=== PATIENT | male | born 1945 | race Caucasian/White ===

== ENCOUNTER 2020-01-25 12:22 | Outpatient (CLI) | payer MEDICARE, SELFPAY ==
--- NOTE | ~2020-01-25 | XR_ITS ---
XR lumbar spine 2-3V DATE: 01/25/2020 12:46 INDICATION: Low back pain. No injury. TECHNIQUE: AP, lateral, coned lateral lumbosacral views COMPARISON: None FINDINGS: Diffuse osteopenia. Mild levoscoliosis of the lumbar spine. Normal alignment of the lumbar spine. There is minimal anterolisthesis at L2-3. Mild degenerative disc disease at L2-3. There is moderately severe degenerative disease at L3-4 and L 4-5 and L5-S1. No fracture or bone destruction. The lumbar pedicles are intact. The sacral iliac joints appear mine l. There is extensive calcification of the abdominal aorta and iliac arteries. IMPRESSION: Mild levoscoliosis Diffuse osteopenia Multilevel degenerative disc disease Reviewed, dictated and finalized at location A.
== END 2020-01-25 12:23 | disposition home or self-care (01) ==
PROVIDERS: PCP Family Medicine; Visit Provider Family Medicine
DX: M54.16 Radiculopathy, lumbar region (principal); M54.5 Low back pain; M41.86 Other forms of scoliosis, lumbar region; M85.88 Other specified disorders of bone density and structure, other site; M51.36 Other intervertebral disc degeneration, lumbar region
CPT/HCPCS: 72100

== ENCOUNTER 2020-03-19 14:26 | Outpatient (CLI) | payer MEDICARE, SELFPAY ==
--- NOTE | ~2020-03-19 | US_ITS ---
EXAMINATION: US carotid duplex BI DATE: 03/19/2020 15:14 INDICATION: Bilateral carotid stenosis. TECHNIQUE: Grayscale, color Doppler, and pulsed Doppler images of the cervical carotid arteries were obtained. The degree of vessel stenosis is placed in one of the following categories: normal, <50%, 5 0-69%, >=70% but less than near-occlusion, near-occlusion, or total occlusion. Note that percent sten osis relative to normal distal artery lumen diameter is indirectly measured from velocity measurement s as described by Irvin, et al. Radiology 2003; 229:340-346. COMPARISON: Ultrasound 01/11/2019 FINDINGS: RIGHT: The right common carotid artery (CCA) peak systolic velocity (PSV) is 61 cm/s. The right internal car otid artery (ICA) PSV is 237 cm/s. The right ICA end-diastolic velocity (EDV) is 46 cm/s. The right I CA/CCA PSV ratio is 3.9. Grayscale and color Doppler images yield an estimate of >=50% diameter reduc tion from plaque in the ICA. There is antegrade flow in the right vertebral artery. LEFT: The left CCA PSV is 100 cm/s. The left ICA PSV is 195 cm/s. The left ICA EDV is 44 cm/s. The left ICA /CCA PSV ratio is 1.9. Grayscale and color Doppler images yield an estimate of >=50% diameter reducti on from plaque in the ICA. There is antegrade flow in the left vertebral artery. IMPRESSION: 1. 50-69% stenosis in the right internal carotid artery. 2. 50-69% stenosis in the left internal carotid artery. Reviewed, dictated and finalized at location A. ATRIC MEDICINE PROFESSOR
== END 2020-03-19 14:27 | disposition home or self-care (01) ==
LOC: ANHIMG 14:28
PROVIDERS: PCP Family Medicine; Visit Provider Internal Medicine Cardiovascular Disease
DX: I65.23 Occlusion and stenosis of bilateral carotid arteries (principal)
CPT/HCPCS: 93880

== ENCOUNTER 2020-10-04 09:17 | Outpatient (CLI) | payer MEDICARE, SELFPAY ==
--- NOTE | 2020-10-04 09:24 | ECG_ITS ---
Measurements Intervals [place] Rate: 60 P: 47 NC: 207 QRS: -67 QRSD: 166 T: 6 QT: 414 QTc: 414 Interpretive Statements SINUS RHYTHM BORDERLINE AV CONDUCTION DELAY RIGHT BUNDLE BRANCH BLOCK LEFT ANTERIOR FASCICULAR BLOCK BASELINE ARTIFACT- I, II, III, AVR, AVL, AVF ABNORMAL ECG Electronically Signed On 10-04-2020 9:55:55 CDT by Adán Henning D.O.
[2020-10-04 10:35] LABS: Partial Thromboplastin Time 29.6 SECONDS (22.3-36.8); Prothrombin Time 13.3 Seconds (11.1-14.7)
== END 2020-10-04 09:18 | disposition home or self-care (01) ==
PROVIDERS: PCP Family Medicine; Visit Provider Urology
DX: Z01.818 Encounter for other preprocedural examination (principal); E78.5 Hyperlipidemia, unspecified; R31.0 Gross hematuria; R94.31 Abnormal electrocardiogram [ECG] [EKG]
CPT/HCPCS: 36415; 85610; 85730; 87086; 93005

== ENCOUNTER 2020-10-09 02:00 | Day surgery (SDC) | payer MEDICARE, SELFPAY ==
[2020-10-02 13:38] VITALS: BMI 24.3
--- NOTE | 2020-10-08 14:33 | WPDANESEPPF ---
Anes - Initial Pre Proc Eval Procedure: Operation Date: 10/09/20 13:15 Proposed Procedures p Trans Urethral Resection Prostate - Will Saenz MD s Possible Trans Urethral Resection Bladder Tumor - Will Saenz MD Date/Time: 10/08/20 14:33 Surgeon: Will Saenz MD Pre Op Diagnosis: gross hematuria, BPH Patient Data Age: 75 Gender: M Height: 1.73 m Weight: 72.6 kg Allergies Allergy/AdvReac Type Severity Reaction Status Date / Time ciprofloxacin [From Cipro] Allergy Severe HIVES/FEVER Verified 10/09/20 10:41 Home Medications Medication Instructions Recorded Confirmed Type carvedilol 3.125 mg tablet 3.125 mg PO BID tablet 02/17/19 10/09/20 History lisinopril 2.5 mg tablet 2.5 mg PO DAILY 02/17/19 10/09/20 History blood sugar diagnostic #100 each 06/11/20 06/28/20 Rx metformin 500 mg tablet 500 mg PO BID #180 tablet 06/11/20 10/09/20 Rx lancets #100 each 06/13/20 06/28/20 Rx omeprazole 20 mg capsule,delayed 20 mg PO DAILY #90 cap 08/28/20 10/09/20 Rx release amoxicillin 500 mg PO TID 10/02/20 10/09/20 History aspirin [Adult Low Dose Aspirin] 81 mg PO DAILY 10/02/20 10/09/20 History atorvastatin 20 mg PO HS 10/02/20 10/09/20 History multivitamin,ko-mtaj-khwblfay 1 tablet PO DAILY 10/02/20 10/09/20 History [Complete Multivitamin] tamsulosin 0.4 mg PO HS 10/02/20 10/09/20 History Patient hx anesthesia problems: none Family hx anesthesia problems: none PMFSH Past Medical History Medical History (Updated 10/08/20 @ 14:34 by Spencer Carney MD) Anemia Benign prostatic hyperplasia with lower urinary tract symptoms Bilateral carotid artery stenosis Chronic GERD Coronary artery disease involving [place] coronary artery of [place] heart Hematuria Hyperlipidemia Hypertensive heart disease without congestive heart failure [place] (myocardial infarction) Thrombocytopenic Type 2 diabetes mellitus without complication, without long-term current use of insulin Surgical History Surgical History (Updated 10/08/20 @ 14:34 by Spencer Carney MD) Hx of CABG Family History Family History Sibling Diabetes mellitus Hypertension Family history of cardiovascular disease Mother Family history of cardiovascular disease Other Carcinoma of colon Social History Social History (Updated 09/24/20 @ 14:45 by Doretha Sharma) Social History: Smoking packs per day: 2 Smoking cigarettes per day: 40.0 Years smoked: 40 Smoking pack-years: 80.00 Smoking status: Former smoker Tobacco type: cigarettes Second hand tobacco smoke exposure: Yes Smoking end date: 03/30/98 Alcohol intake: current Drinks per week: 1 Substance use: never Substance use type: does not use Living arrangements: alone Gender identity (if verbalized by the patient): Male Spiritual care concerns: No Anes - Eval Final PreProcedure Day of Procedure 10/08/20 14:33 Patient weight: obese Heart: regular rate and rhythm Lungs: clear to auscultation and normal air movement Airway: Mallampati scale class II Neurological: alert and oriented Last oral intake: >/= 8 hours ASA classification: III Emergent: no Anesthetic plan: proceed Anesthesia type and monitoring: general LMA Informed Consent: The patient's anesthetic plan and its attendant risks and benefits were discussed with the patient/family/POA. Questions were solicited and answers provided to the satisfaction of the patient/family/POA.
[2020-10-09] VITALS (15 sets, daily range): BP systolic 103–162; BP diastolic 55–90; PULSE 63–79; RESP 11–20; TEMP 35.9–36.4; O2SAT 94–100
[2020-10-09] MEDS: LACTATED RINGERS 1,000 ML 30 ML IV CONT ×2 (11:00→13:21)
[2020-10-09 11:27] LABS: Glucose Point of Care 184 mg/dl (65-105)
--- NOTE | 2020-10-09 12:00 | WPDHPUPDATE1 ---
History and Physical Update Update Date/Time: 10/09/20 12:00 History and Physical has been reviewed, including an updated exam of the patient. There are NO changes in the patient's condition. Risks, benefits, and alternatives have been discussed and questions answered. Patient agrees to proceed with procedure. Proceed with TURBT possible TURP
[2020-10-09] MEDS: ceFAZolin 2 GM/D5W 50 ML 2 GM/50 ML BAG IVPB (12:21)
[2020-10-09] MEDS: LIDOCAINE HCL 2% GEL UROJET 10 ML PKG MUCOUS MEM (12:55)
--- NOTE | 2020-10-09 13:17 | P.OP_ITS ---
Procedure Note - Detailed Date of Procedure 10/09/20 Pre-op Diagnosis gross hematuria, BPH Post-op Diagnosis same ( large bladder lesion greater than 5 cm) Procedure Performed transurethral resection of large bladder tumor greater than 5 cm encompassing the right floor extending to bladder neck Surgeon Will Saenz MD Anesthesia general Description of Procedure patient is taken to the operative suite and correctly identified. Once anesthesia was obtained he was placed in the dorsal lithotomy position and prepped and draped usual sterile fashion. A 24 Japanese scope was inserted in the bladder under direct vision. there were no urethral strictures. Prostate has some lateral lobe hypertrophy. Upon entering the bladder he has a very large tumor which is extending off of the floor on the right in between the right ureteral orifice and bladder neck. This is extending to the right alex trigone as well as to the bladder neck area. The right ureteral orifice is visualized and is just adjacent to this lesion. It is apparent that this is now most likely a bladder tumor. The area compass is greater than 5 cm. He also has some smaller lesions just proximal to the right ureteral orifice. We went ahead and resected these. Resected the larger tumor down to the base. The base was also resected. It was apparent that this was extremely deep and has a high likelihood of being muscle invasive. We terminated the resection as there was fear of causing perforation due to the depth of the involvement of the muscle By the lesion. Chips were sent for analysis. We fulgurated the base using a ball electrode. 2% viscous lidocaine was inserted into the urethra and a [address] was placed with 20 cc in the balloon. This was connected to continuous bladder irrigation. Patient is taken recovery room stable condition. Further recommendations made pending his path results. He will be admitted for continuous bladder irrigation Estimated Blood Loss 20 Drains Yes Packing No Pathology yes Complications No immediate complications Condition stable Disposition PACU
[2020-10-09 14:27] LABS: Glucose Point of Care 164 mg/dl (65-105)
[2020-10-09 17:05] LABS: Glucose Point of Care 191 mg/dl (65-105)
[2020-10-09] MEDS: carvediloL 3.125 MG TABLET PO (17:05)
[2020-10-09] MEDS: DOCUSATE SODIUM 100 MG CAPSULE PO (17:06)
[2020-10-09] MEDS: metFORMIN HCL 500 MG TABLET PO (17:07)
[2020-10-09] MEDS: HYDROcodone/acetaminophen (*CRX) 5-325 MG TABLET 1 TAB PO ×2 (17:12→22:09)
[2020-10-09] MEDS: TAMSULOSIN HCL 0.4 MG CAPSULE PO (20:43)
[2020-10-09] MEDS: ATORVASTATIN 20 MG TABLET PO (20:43)
[2020-10-10 04:00] VITALS: BP 135/86; PULSE 66; RESP 16; TEMP 35.8; O2SAT 98
[2020-10-10] MEDS: HYDROcodone/acetaminophen (*CRX) 5-325 MG TABLET 1 TAB PO (05:46)
[2020-10-10 06:13] LABS: Hematocrit 41.6 % (42.0-52.0); Hemoglobin 13.6 g/dL (14.0-18.0)
[2020-10-10 06:24] LABS: Anion Gap 6 mmol/L (8-16); Blood Urea Nitrogen 16 mg/dL (9-20); Calcium 9.2 mg/dL (8.4-10.2); Carbon Dioxide 29 mmol/L (22-30); Chloride 102 mmol/L (98-107); Estimated CRCL calculation 58 ml/min; Estimated Glomerular Filt Rate > 60; Glucose 165 mg/dL (75-110); Potassium 3.9 mmol/L (3.4-5.0); Sodium 137 mmol/L (137-145)
[2020-10-10] MEDS: PANTOPRAZOLE 40 MG TABLET PO (08:15)
[2020-10-10 08:16] VITALS: PULSE 70
[2020-10-10] MEDS: DOCUSATE SODIUM 100 MG CAPSULE PO (08:16)
[2020-10-10] MEDS: carvediloL 3.125 MG TABLET PO (08:16)
[2020-10-10] MEDS: lisinopriL 2.5 MG TABLET PO (08:16)
[2020-10-10] MEDS: metFORMIN HCL 500 MG TABLET PO (08:16)
--- NOTE | 2020-10-10 10:16 | PC.NURSE ---
cbi clamped off at this time. Will continue to monitor the urine output and color.
--- NOTE | 2020-10-10 10:26 | WPDUROPN2 ---
Progress Note: A&P Assessment and Plan (1) Benign prostatic hyperplasia with lower urinary tract symptoms: Code(s): N40.1 - Benign prostatic hyperplasia with lower urinary tract symptoms Status: Acute Assessment and Plan: Stopped CBI, if urine remains clear to pink, ok to discharge home in a couple of hours. We discussed post operative instructions. (2) Bladder mass: Code(s): N32.89 - Other specified disorders of bladder Status: Acute Assessment and Plan: Catheter will remain in until Thursday when it will be removed in the office. Subjective Subjective Date/Time Seen: 10/10/20 10:26 POD #1 TURBT Patient doing very well, tolerating diet, activity and is not c/o pain. Urine is clear on slow CBI. Review of Systems Cardiovascular: Cardiovascular: Denies chest pain Respiratory: Respiratory: Reports no additional respiratory complaints Gastrointestinal: Gastrointestinal: Denies abdominal pain, Denies nausea and Denies vomiting Genitourinary: Genitourinary: Denies hematuria Exam Resp: Effort & Inspection: normal respiratory effort Cardio: Rate: regular rate GI: GI Palp: Yes Soft to palpation and No Tenderness to palpation present (GI) : General: Yes bladder normal to palpation and Yes no CVA tenderness Urinary Catheter: Urinary Catheter: patent and draining and urine clear Extrem: General: no edema Objective Data Vital Signs Vital Signs: Vital Signs - 24 hr 10/09/20 10:27 10/09/20 13:21 10/09/20 13:35 Temperature 97.2 F L 97.6 F Pulse Rate 73 63 64 Respiratory Rate 20 12 11 L Blood Pressure 125/77 140/67 137/60 Pulse Oximetry 100 97 10/09/20 13:50 10/09/20 14:05 10/09/20 14:20 Temperature Pulse Rate 66 66 69 Respiratory Rate 16 12 16 Blood Pressure 135/70 123/90 156/69 H Pulse Oximetry 99 96 94 10/09/20 14:35 10/09/20 14:50 10/09/20 15:05 Temperature Pulse Rate 65 70 67 Respiratory Rate 12 12 12 Blood Pressure 155/72 H 155/68 H 149/65 H Pulse Oximetry 96 97 97 10/09/20 15:20 10/09/20 15:28 10/09/20 17:05 Temperature Pulse Rate 69 70 Respiratory Rate 12 Blood Pressure 144/74 H 162/73 H Pulse Oximetry 97 10/09/20 17:13 10/09/20 20:37 10/09/20 23:51 Temperature 97.1 F L 96.6 F L Pulse Rate 79 74 Respiratory Rate 16 16 Blood Pressure 133/65 103/86 103/55 L Pulse Oximetry 97 97 10/10/20 04:00 10/10/20 08:16 Temperature 96.4 F L Pulse Rate 66 70 Respiratory Rate 16 Blood Pressure 135/86 Pulse Oximetry 98 Intake/Output Intake/Output: Intake & Output 10/07/20 10/08/20 10/09/20 10/10/20 23:59 23:59 23:59 23:59 Intake Total 1350 760 Output Total 5514 1177 Balance -3510 -479 Meds/Results Medications: Active Medications Generic Name Dose Route Start Last Admin Trade Name Freq PRN Reason Stop Dose Admin Hydrocodone Bitart/Acetaminophen 1 tab 10/09/20 15:28 10/10/20 05:46 Hydrocodone/Acetaminophen (*Crx) 5-325 Mg Tablet PO 1 tab Q4H PRN Administration Pain Rated 1-6 Atorvastatin Calcium 20 mg 10/09/20 21:00 10/09/20 20:43 Atorvastatin 20 Mg Tablet PO 20 mg HS ANDREW Administration Carvedilol 3.125 mg 10/09/20 17:00 10/10/20 08:16 Carvedilol 3.125 Mg Tablet PO 3.125 mg BID ANDREW Administration Cephalexin HCl 500 mg 10/10/20 13:00 Cephalexin 500 Mg Capsule PO QID ANDREW Docusate Sodium 100 mg 10/09/20 17:00 10/10/20 08:16 Docusate Sodium 100 Mg Capsule PO 100 mg BID ANDREW Administration Hyoscyamine 0.125 mg 10/09/20 15:28 Hyoscyamine Sulfate 0.125 Mg Tablet SUBLINGUAL Q6H PRN Bladder Spasm Lisinopril 2.5 mg 10/10/20 09:00 10/10/20 08:16 Lisinopril 2.5 Mg Tablet PO 2.5 mg DAILY ANDREW Administration Metformin HCl 500 mg 10/09/20 17:00 10/10/20 08:16 Metformin Hcl 500 Mg Tablet PO 500 mg BID ANDREW Administration Morphine Sulfate 2 mg 10/09/20 15:28 Morphine Sulfate (*Crx) 2 Mg/Ml Inj IV PUSH
--- NOTE | 2020-10-10 13:52 | PC.NURSE ---
late entry patient's urine was clear, with no clots. Instructed on how to switch to a leg bag and discharge instructions given
== END 2020-10-10 13:40 | disposition home or self-care (01) ==
LOC: ANHSURGERY 10:18 → ANH3MED 15:30
PROVIDERS: PCP Family Medicine; Visit Provider Urology
PROC: 0TBB8ZZ Excision of Bladder, Via Natural or Artificial Opening Endoscopic (ICD-10-PCS; CPT 52240; 2020-10-09 13:15)
DX: C67.8 Malignant neoplasm of overlapping sites of bladder (principal); N40.0 Benign prostatic hyperplasia without lower urinary tract symptoms; I25.10 Atherosclerotic heart disease of native coronary artery without angina pectoris; I11.9 Hypertensive heart disease without heart failure; I25.2 Old myocardial infarction; E11.9 Type 2 diabetes mellitus without complications; K21.9 Gastro-esophageal reflux disease without esophagitis; E78.5 Hyperlipidemia, unspecified; D64.9 Anemia, unspecified; Z79.84 Long term (current) use of oral hypoglycemic drugs; Z79.82 Long term (current) use of aspirin; Z95.1 Presence of aortocoronary bypass graft; Z87.891 Personal history of nicotine dependence
CPT/HCPCS: 52240; 36415; 80048; 82948; 85014; 85018; 88305; 88342; A9270; J0690; J1100; J2405; J2704; J3010; J7120

== ENCOUNTER 2020-11-30 05:25 | Emergency (ER) | payer MEDICARE, SELFPAY ==
--- NOTE | ~2020-11-30 | CT_ITS ---
EXAMINATION: CTA chest PE protocol DATE: 11/30/2020 06:43 INDICATION: Chest pain, history of bladder cancer TECHNIQUE: Computed tomography angiography (CTA) of the chest was performed with 100 mL Omnipaque-350 intravenous contrast timed to evaluate the pulmonary arteries. Coronal maximum intensity projection 3D-reconstructions were created by the technologist. The dose-length product (DLP) was 373.33 mGy-cm. Automated exposure control and iterative reconstruction technique were employed. COMPARISON: None. FINDINGS: The pulmonary arteries are well-opacified. No pulmonary embolism is identified. There is mi ld emphysema. There are subpleural reticular and groundglass opacities with a lower lung zone predomi nance. Scattered pulmonary nodules are present which measure up to 6 mm in the left lower lobe. There is no pleural effusion or pneumothorax. The heart size is normal. There are changes of coronary ca ry bypass grafting. There are no pathologically enlarged thoracic lymph nodes. Mild thoracic spondylo sis is noted. Cysts of the partially visualized kidneys measure up to 3.7 cm on the right. The gallbl adder is surgically absent. IMPRESSION: 1. No pulmonary embolism identified. 2. Scattered pulmonary nodules measuring up to 6 mm, likely infectious or inflammatory. Follow-up CT in three six months is recommended. 3. Chronic interstitial lung disease in a pattern of nonspecific interstitial pneumonia (NSIP). Reviewed, dictated and finalized at location A. IMPRESSION: 1. No pulmonary embolism identified. 2. Scattered pulmonary nodules measuring up to 6 mm, likely infectious or infla mmatory. Follow-up CT in three six months is recommended. 3. Chronic interstitial lung disease in a pattern of nonspecific interstitial p neumonia (NSIP).
--- NOTE | ~2020-11-30 | XR_ITS ---
EXAMINATION: XR chest 2V DATE: 11/30/2020 06:10 INDICATION: Chest pain TECHNIQUE: PA and lateral views of the chest are obtained. COMPARISON: 10/13/2017 FINDINGS: The lungs are free of acute opacities. There is no pleural effusion or pneumothorax. The he art size is normal. Median sternotomy wires and mediastinal surgical clips are seen, likely from prio r coronary artery bypass grafting. There is mild thoracic spondylosis. IMPRESSION: 1. No acute cardiopulmonary abnormality. Reviewed, dictated and finalized at location A.
--- NOTE | 2020-11-30 05:27 | ECG_ITS ---
Measurements Intervals [place] Rate: 75 P: 54 FL: 172 QRS: -65 QRSD: 170 T: 35 QT: 407 QTc: 457 Interpretive Statements SINUS RHYTHM POSSIBLE LEFT ATRIAL ENLARGEMENT LEFT AXIS DEVIATION RIGHT BUNDLE BRANCH BLOCK BASELINE ARTIFACT- I, III, AVL ABNORMAL ECG Electronically Signed On 11-30-2020 5:50:22 CDT by Adán Henning D.O.
[2020-11-30 05:28] VITALS: BP 132/73; PULSE 75; PULSE 80; RESP 16; TEMP 36.9; O2SAT 100
--- NOTE | 2020-11-30 05:39 | ED.CHESTPAIN ---
HPI - Chest Pain General Chief Complaint: Chest Pain <Ahmet Sagastume MD - Last Filed: 11/30/20 19:00> Stated Complaint: chest pain <Ahmet Sagastume MD - Last Filed: 11/30/20 19:00> Time Seen by Provider: 11/30/20 05:35 <Ahmet Sagastume MD - Last Filed: 11/30/20 19:00> History of Present Illness HPI narrative: Patient presents with chest pain. Patient reports that symptoms started around 231, he went back to bed occurred around 430 or persistent so came to the ER for evaluation reports on arrival to the ER his symptoms have nearly completely resolved. His pain was achy, constant, is on his bilateral chest, no radiation, no clear aggravating or alleviating factors. <Ahmet Sagastume MD - Last Filed: 11/30/20 19:00> Related Data Home Medications: Home Medications Medication Instructions Recorded Confirmed carvedilol 3.125 mg tablet 3.125 mg PO BID tablet 02/17/19 10/09/20 lisinopril 2.5 mg tablet 2.5 mg PO DAILY 02/17/19 10/09/20 aspirin 81 mg PO DAILY 10/02/20 10/09/20 atorvastatin 20 mg PO HS 10/02/20 10/09/20 <Ahmet Sagastume MD - Last Filed: 11/30/20 19:00> Allergies/Adverse Reactions: Allergies Allergy/AdvReac Type Severity Reaction Status Date / Time ciprofloxacin [From Cipro] Allergy Severe HIVES/FEVER Verified 11/30/20 05:37 <Ahmet Sagastume MD - Last Filed: 11/30/20 19:00> Review of Systems Review of Systems: CONSTITUTIONAL: Denies fever, chills, or sweats. EYES: Denies visual changes, redness, or discharge. ENT: Denies rhinorrhea, congestion, sore throat, or otalgia. CARDIOVASCULAR: Denies palpitations, or edema. RESPIRATORY: Denies cough or dyspnea. GASTROINTESTINAL: Denies abdominal pain, nausea, vomiting, or diarrhea. GENITOURINARY: Denies dysuria or hematuria. SKIN: Denies rash or itching. MUSCULOSKELETAL: Denies back pain, joint pain, or myalgia. NEUROLOGIC: Denies headache, numbness, dizziness, or weakness. PSYCHIATRIC: Denies anxiety or depression. <Ahmet Sagastume MD - Last Filed: 11/30/20 19:00> All systems reviewed & are unremarkable except as noted in HPI and below <Ahmet Sagastume MD - Last Filed: 11/30/20 19:00> PMFSH Past Medical History Medical History: Medical History Anemia Benign prostatic hyperplasia with lower urinary tract symptoms Bilateral carotid artery stenosis Bladder cancer Chronic GERD Coronary artery disease involving [place] coronary artery of [place] heart Hematuria Hyperlipidemia Hypertensive heart disease without congestive heart failure [place] (myocardial infarction) Thrombocytopenic Type 2 diabetes mellitus without complication, without long-term current use of insulin <Ahmet Sagastume MD - Last Filed: 11/30/20 19:00> Surgical History Surgical History: Surgical History Hx of CABG <Ahmet Sagastume MD - Last Filed: 11/30/20 19:00> Family History Family History: Family History Sibling Diabetes mellitus Hypertension Family history of cardiovascular disease Mother Family history of cardiovascular disease Other Carcinoma of colon <Ahmet Sagastume MD - Last Filed: 11/30/20 19:00> Social History Social History: Social History Social History: Smoking packs per day: 2 Smoking cigarettes per day: 40.0 Years smoked: 40 Smoking pack-years: 80.00 Smoking status: Former smoker Tobacco type: cigarettes Second hand tobacco smoke exposure: Yes Smoking end date: 03/30/98 Alcohol intake: current Drinks per week: 1 Substance use: never Substance use type: does not use Gender identity (if verbalized by the patient): Male Sexual Orientation (if Verbalized by the Patient): Straight or Heterosexual Spiritual care concerns: No <Ahmet
--- NOTE | 2020-11-30 05:40 | PC.NURSE ---
EKG 1: anterior EKG 2: posterior per ERP VRBO
--- NOTE | 2020-11-30 05:45 | ECG_ITS ---
Measurements Intervals [place] Rate: 82 P: 59 [place]: 165 QRS: -61 QRSD: 154 T: 24 QT: 393 QTc: 459 Interpretive Statements SINUS RHYTHM LEFT AXIS DEVIATION RIGHT BUNDLE BRANCH BLOCK LOW VOLTAGE- PRECORDIAL LEADS ANTEROSEPTAL INFARCT, AGE INDETERMINATE BASELINE ARTIFACT- I, II, III, AVR, AVL, AVF ABNORMAL ECG Electronically Signed On 11-30-2020 5:51:22 CDT by Adán Henning D.O.
[2020-11-30 05:48] LABS: Basophils Absolute Auto 0.1 K/mm3 (0.0-0.1); Basophils Percent Auto 2.9 % (0.2-1.2); Eosinophils Absolute Auto 0.1 K/mm3 (0-0.3); Eosinophils Percent Auto 3.8 % (0-4.4); Hematocrit 38.1 % (42.0-52.0); Hemoglobin 12.2 g/dL (14.0-18.0); Immature Granulocyte Absolute 0.02 K/mm3 (0.00-0.031); Immature Platelet Fraction Pct 8.6 % (0.9-11.2); Lymphocytes Absolute Auto 1.06 K/mm3 (0.9-3.2); Mean Corpuscular Volume 93.6 fl (80-100); Mean Platelet Volume 11.8 fl (7.4-10.4); Monocytes Absolute Auto 0.3 K/mm3 (0.1-0.6); Neutrophils Absolute Auto 0.6 K/mm3 (1.3-6.7); Neutrophils Percent Auto 29.3 % (45.5-73.1); Platelet Count Result 28 k/mm3 (150-375); Red Blood Count 4.07 M/mm3 (4.6-6.20); Red Cell Distribution Width 13.2 % (11.5-14.5); White Blood Count 2.1 K/mm3 (4.5-10.0)
[2020-11-30] MEDS: ASPIRIN 81 MG CHEWABLE TABLET 324 MG PO (05:48)
[2020-11-30 05:58] LABS: Anion Gap 8 mmol/L (8-16); Blood Urea Nitrogen 35 mg/dL (9-20); Calcium 9.2 mg/dL (8.4-10.2); Carbon Dioxide 27 mmol/L (22-30); Chloride 103 mmol/L (98-107); Estimated CRCL calculation 48 ml/min; Estimated Glomerular Filt Rate > 60; Glucose 166 mg/dL (65-110); Potassium 4.8 mmol/L (3.4-5.0); Sodium 138 mmol/L (137-145)
[2020-11-30 06:00] LABS: INR 0.9; Prothrombin Time 11.7 Seconds (11.1-14.7)
[2020-11-30 06:01] VITALS: BP 111/66; PULSE 66; RESP 16; O2SAT 100
[2020-11-30 06:01] LABS: Partial Thromboplastin Time 26.5 SECONDS (22.3-36.8)
--- NOTE | 2020-11-30 06:05 | PC.NURSE ---
Pt to imaging at this time.
[2020-11-30 06:10] LABS: Troponin I < 0.012 ng/mL (0.000-0.034)
[2020-11-30 06:11] VITALS: BP 125/57; PULSE 69; RESP 20; O2SAT 100
[2020-11-30 06:16] VITALS: BP 103/63; PULSE 69; RESP 14; O2SAT 94
--- NOTE | 2020-11-30 06:31 | PC.NURSE ---
Pt to imaging at this time.
[2020-11-30 06:52] VITALS: BP 119/60; PULSE 68; RESP 17; O2SAT 100
[2020-11-30 08:13] LABS: Troponin I < 0.012 ng/mL (0.000-0.034)
== END 2020-11-30 08:37 | disposition left against medical advice (07) ==
PROVIDERS: Emergency Medicine; Emergency Provider Emergency Medicine; PCP Family Medicine
DX: D69.6 Thrombocytopenia, unspecified (principal); R07.9 Chest pain, unspecified; D72.819 Decreased white blood cell count, unspecified; I65.23 Occlusion and stenosis of bilateral carotid arteries; I25.10 Atherosclerotic heart disease of native coronary artery without angina pectoris; E78.5 Hyperlipidemia, unspecified; I11.9 Hypertensive heart disease without heart failure; E11.9 Type 2 diabetes mellitus without complications; N40.1 Benign prostatic hyperplasia with lower urinary tract symptoms; D64.9 Anemia, unspecified; I25.2 Old myocardial infarction; K21.9 Gastro-esophageal reflux disease without esophagitis; Z95.1 Presence of aortocoronary bypass graft; Z87.891 Personal history of nicotine dependence; Z79.82 Long term (current) use of aspirin; Z79.4 Long term (current) use of insulin; I45.10 Unspecified right bundle-branch block; R94.31 Abnormal electrocardiogram [ECG] [EKG]
CPT/HCPCS: 36415; 71046; 71275; 80048; 84484; 85025; 85055; 85610; 85730; 93005; 99284; A9270; Q9967

== ENCOUNTER 2021-05-13 05:10 | Emergency (ER) | payer MEDICARE, SELFPAY ==
[2021-05-13] VITALS (9 sets, daily range): BP systolic 103–128; BP diastolic 30–99; PULSE 68–80; RESP 14–23; TEMP 36.7; O2SAT 97–100
--- NOTE | ~2021-05-13 | CT_ITS ---
EXAMINATION: CT lumbar spine wo con DATE: 05/13/2021 06:04 INDICATION: Low back pain. Bladder cancer. TECHNIQUE: Computed tomography (CT) of the lumbar spine was performed without intravenous contrast. A utomated exposure control and iterative reconstruction technique were employed. The dose-length produ ct was 600.33 mGy-cm. COMPARISON: None FINDINGS: There is a small sliding hiatal hernia. Partially visualized are cysts in the kidneys. Ther e is a Kyle catheter in the bladder. There is 12 degrees levoscoliosis of lumbar spine. There is 3 m m anterolisthesis of L2 on L3 and L5 on S1. Vertebral body heights are normal. There is mildly decrea sed disc height at L2-L3, L3-L4, and L5-S1 and moderately decreased disc height at L4-L5. The followi ng disc levels are specifically discussed: L1-L2: The disc is bulging. 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 There is mild lef t neural foraminal stenosis. There is mild central canal stenosis. L2-L3: The disc is bulging. There is severe bilateral facet joint osteoarthritis. There is moderate r ight and mild left neural foraminal stenosis. There is moderate central canal stenosis. L3-L4: The disc is bulging. There is severe right and mild left facet joint osteoarthritis. There is moderate bilateral neural foraminal stenosis. There is mild central canal stenosis. L4-L5: The disc is bulging. There is severe bilateral facet joint osteoarthritis. There is moderate b ilateral neural foraminal stenosis. There is moderate central canal stenosis. L5-S1: The disc is bulging. There is severe bilateral facet joint osteoarthritis. There is moderate b ilateral neural foraminal stenosis. There is mild central canal stenosis. IMPRESSION: 1. Moderate lumbar spondylosis. 2. Lumbar levoscoliosis. Reviewed, dictated and finalized at location A[facility]
[2021-05-13] MEDS: MORPHINE SULFATE (*CRX) 4 MG/ML INJ IV PUSH ×2 (06:19→06:49)
--- NOTE | 2021-05-13 07:16 | ED.MALEGU ---
HPI - Male Genitourinary General Chief complaint: Urogenital-Male Stated complaint: Low back pain since 1700 Time Seen by Provider: 05/13/21 05:16 History of Present Illness HPI Narrative: Patient is a 76-year-old male with history of metastatic small cell bladder cancer who presents to the ER with low back pain. Has known mets to his back and pelvis. Has not been told whether there are large or small. Patient denies any new trauma. No numbness or tingling of his legs or groin. No difficulty with using the restroom. He currently has indwelling Kyle catheter because he had a recent urologic procedure. He follows up with his your oncologist tomorrow and his oncologist in 2 days. Denies fevers or chills or sweats. No pain control with [place] at home or with oral Tylenol. Related Data Home Medications Medication Instructions Recorded Confirmed lisinopril 2.5 mg tablet 2.5 mg PO DAILY 02/17/19 03/11/21 aspirin 81 mg PO DAILY 10/02/20 03/11/21 carvedilol 3.125 mg tablet 6.25 mg PO BID tablet 03/11/21 03/11/21 Allergies Allergy/AdvReac Type Severity Reaction Status Date / Time ciprofloxacin [From Cipro] Allergy Severe HIVES/FEVER Verified 03/11/21 07:21 Review of Systems Review of Systems: All systems reviewed & are unremarkable except as noted in HPI and below Constitutional: Constitutional: Denies chills, Denies fever(s) and Denies weakness Cardiovascular: Cardiovascular: Denies chest pain and Denies radiating jaw, neck or arm pain Respiratory: Respiratory: Denies cough and Denies dyspnea Gastrointestinal: Gastrointestinal: Denies abdominal pain, Denies nausea and Denies vomiting Musculoskeletal: Musculoskeletal: Reports back pain, Denies arthralgias, Denies joint swelling and Denies muscle cramps Neurologic: Denies focal weakness and Denies numbness PMFSH Past Medical History Medical History Anemia Benign prostatic hyperplasia with lower urinary tract symptoms Bilateral carotid artery stenosis Bladder cancer Chronic GERD Coronary artery disease involving [place] coronary artery of [place] heart Hematuria Hyperlipidemia Hypertensive heart disease without congestive heart failure [place] (myocardial infarction) Thrombocytopenic Type 2 diabetes mellitus without complication, without long-term current use of insulin Surgical History Surgical History Hx of CABG Family History Family History Sibling Diabetes mellitus Hypertension Family history of cardiovascular disease Mother Family history of cardiovascular disease Other Carcinoma of colon Social History Social History (Updated 03/11/21 @ 07:22 by Doretha Sharma) Social History: Smoking packs per day: 2 Smoking cigarettes per day: 40.0 Years smoked: 40 Smoking pack-years: 80.00 Smoking status: Former smoker Tobacco type: cigarettes Second hand tobacco smoke exposure: Yes Smoking end date: 03/30/98 Alcohol intake: current Drinks per week: 1 Substance use: never Substance use type: does not use Gender identity (if verbalized by the patient): Male Sexual Orientation (if Verbalized by the Patient): Straight or Heterosexual Spiritual care concerns: No Exam Narrative: GENERAL: Well-appearing, well-nourished, and in no acute distress. HEAD: Normocephalic, atraumatic. ENT: Mucous membranes moist. CHEST: Clear to auscultation. No respiratory distress. HEART: Regular rate and rhythm. Normal peripheral pulses. ABDOMEN: Soft, nontender, nondistended, normal active bowel sounds. Normal-appearing urine in leg bag. Back: No midline tenderness of the T/L spine. No tenderness of the sacrum. No reproducible paraspinal muscular tenderness. Edema. SKIN: Warm, dry, no rash. NEURO: Alert and oriented x3. Course Vital Signs Vital signs: Vital Signs
--- NOTE | 2021-05-13 07:17 | PC.NURSE ---
Assumed care of pt. at this time. Report from BENITO Ahumada
== END 2021-05-13 07:35 | disposition home or self-care (01) ==
PROVIDERS: Emergency Provider Emergency Medicine; PCP Family Medicine
DX: M54.50 Low back pain, unspecified (principal); C67.9 Malignant neoplasm of bladder, unspecified; C79.51 Secondary malignant neoplasm of bone; I25.10 Atherosclerotic heart disease of native coronary artery without angina pectoris; I65.23 Occlusion and stenosis of bilateral carotid arteries; K21.9 Gastro-esophageal reflux disease without esophagitis; E78.5 Hyperlipidemia, unspecified; I11.9 Hypertensive heart disease without heart failure; E11.9 Type 2 diabetes mellitus without complications; N40.1 Benign prostatic hyperplasia with lower urinary tract symptoms; I25.2 Old myocardial infarction; Z95.1 Presence of aortocoronary bypass graft; Z87.891 Personal history of nicotine dependence; M47.816 Spondylosis without myelopathy or radiculopathy, lumbar region; Z79.82 Long term (current) use of aspirin; Z79.84 Long term (current) use of oral hypoglycemic drugs
CPT/HCPCS: 72131; 96374; 99284; J2270